=== PATIENT | male | born 1940 | race Caucasian/White ===

== ENCOUNTER → 2018-04-05 | Day surgery (SDC) | payer OTHER | END | disposition home or self-care (01) | LOC: FIMAGING 13:04 | PROVIDERS: ATTEND Physician Assistant | PROC: 02HV33Z Insertion of Infusion Device into Superior Vena Cava, Percutaneous Approach (ICD-10-PCS; principal; 2018-04-05) | DX: C67.9 Malignant neoplasm of bladder, unspecified (principal) | CPT/HCPCS: 36573; 77001; C1751 ==